=== PATIENT | female | born 1990 | race Caucasian/White ===

== ENCOUNTER 2017-05-05 16:12 | Emergency (ER) | payer SELFPAY ==
--- NOTE | 2017-05-05 17:03 | Emergency Department Record ---
History of Present Illness - General Chief Complaint: Back Pain/Injury Stated Complaint: BACK PAIN Time Seen by Provider: 05/05/17 16:55 Source: Patient Mode of Arrival: Ambulatory Limitations: No limitations - History of Present Illness Initial Comments: The patient is here due to worsening of her chronic low back pain. She was bumped by a tractor 2 days ago and fell backwards and landed on her R arm and low back. Now since her chronic back pain has been worse. She denies any AP, leg numbness, weakness, or any bowel or bladder issues. She states her LMP was less than a month ago and she did have a neg home preg test last week. MD Complaint: Back pain Onset/Timin -: Days(s) Similar Symptoms Previously: Yes Place: Other Radiation: None Severity: Moderate Severity scale (1-10): 6 Quality: Aching Consistency: Constant Improves With: None Worsens With: Movement, Walking Context: Other Associated Symptoms: Denies other symptoms Treatment Prior to Arrival Comment:: Icy/Hot - Related Data Home Medications Medication Instructions Recorded Confirmed Last Taken No Home Med [NO HOME MEDS] 05/05/17 05/05/17 Unknown Allergies Allergy/AdvReac Type Severity Reaction Status Date / Time No Known Drug Allergies Allergy Verified 05/05/17 16:25 Travel Screening - Travel/Exposure Within Last 30 Days Have you traveled within the last 30 days?: No - Travel/Exposure Within Last Year Have you traveled outside the [place] in the last year?: No - Additonal Travel Details Have you been exposed to anyone with a communicable illness?: No - Travel Symptoms Symptom Screening: None Review of Systems Constitutional: Denies: Chills, Fever Eyes: Denies: Eye discharge ENT: Denies: Congestion Respiratory: Denies: Cough, Dyspnea Past Medical History - SOCIAL HISTORY Smoking Status: Current every day smoker Alcohol Use: Occassional Drug Use: None - RESPIRATORY Hx Respiratory Disorders: No - CARDIOVASCULAR Hx Cardio Disorders: No - NEURO Hx Neuro Disorders: No - GI Hx GI Disorders: No - Hx Genitourinary Disorders: No - ENDOCRINE Hx Endocrine Disorders: No - MUSCULOSKELETAL Hx Musculoskeletal Disorders: Yes - PSYCH Hx Psych Problems: No - HEMATOLOGY/ONCOLOGY Hx Hematology/Oncology Disorders: No Family Medical History Any Significant Family History?: Yes Family Hx Comment (NOT TO BE USED IN PLACE OF ITEMS BELOW): Dad has back problems Physical Exam - General General Appearance: Alert, Oriented x3, Cooperative, No acute distress - Head Head exam: Atraumatic, Normocephalic, Normal inspection - Eye Eye exam: Normal appearance, PERRL - Neck Neck exam: Normal inspection, Full ROM. negative: Tenderness - Respiratory Respiratory exam: Normal lung sounds bilaterally. negative: Respiratory distress - Cardiovascular Cardiovascular Exam: Regular rate, Normal rhythm, Normal heart sounds - GI/Abdominal GI/Abdominal exam: Soft, Normal bowel sounds. negative: Tenderness - Back Back exam: Reports: Normal inspection, Paraspinal tenderness (mild L1-5), Vertebral tenderness (very mild L 1-5.) - Neurological Neurological exam: Alert, Altered, Normal gait, Oriented X3, Reflexes normal, Other. negative: Abnormal gait, Motor sensory deficit Course Vital Signs 05/05/17 16:26 Temperature 97.9 F Pulse Rate 71 Respiratory 20 Rate Blood Pressure 118/87 Pulse Ox 98 - Reevaluation(s) Reevaluation #1: The patient denies any new issues. She is to be off work 2 days and rest and see her PCP if not better. 05/05/17 17:51 Medical Decision Making - Data Complexity MDM Data: X-Ray Ordered and/or Reviewed - Radiology Data Radiology results: Report reviewed (LS Spine: Neg for any acute abnormality.) Disposition Disposition: Discharge Clinical Impression: Lumbar strain Qualifiers: Encounter type: initial encounter Qualified Code(s): S39.012A - Strain of muscle, fascia and tendon of lower back, initial encounter Disposition: Home, Self-Care Condition: (1) Good Instructions: Low Back Strain (ED) Additional Instructions: Please use your home pain medicines as needed with no lifting for 2 days. Please see your PCP if not better in 3 days. Return to the ER for any increasing pain, weakness, numbness or any bowel or bladder issues. Forms: Patient Portal Access Time of Disposition: 17:52 Quality - Quality Measures Quality Measures: N/A - Blood Pressure Screening Blood Pressure Classification: Pre-Hypertensive BP Reading Systolic Measurement: 118 Diastolic Measurement: 87 Screening for High Blood Pressure: < Pre-Hypertensive BP, F/U Documented > [ G8950] Pre-Hypertensive Follow-up Interventions: Follow-up with rescreen every year.
[2017-05-05] MEDS: ACETAMINOPHEN 325 MG TAB PO ONE (17:12)
--- NOTE | 2017-05-06 13:28 | RADIOLOGY REPORT ---
EXAM: LUMBAR SPINE, THREE VIEWS HISTORY: INJURED LUMBAR SPINE ON TRACTOR, PAIN. TECHNIQUE: Three views of the lumbar spine were obtained. Comparison: None. FINDINGS: Five lumbar segments. No fracture or subluxation. The facets are unremarkable. IMPRESSION: NEGATIVE LUMBAR SPINE EXAMINATION. JOB NUMBER: [id number] MTDD
== END 2017-05-05 18:01 | disposition home or self-care (01) ==
LOC: ER 16:12
DX: S39.012A Strain of muscle, fascia and tendon of lower back, initial encounter (principal); W22.8XXA Striking against or struck by other objects, initial encounter
CPT/HCPCS: 72100; 99283

== ENCOUNTER 2017-06-19 04:45 | Emergency (ER) | payer MEDICAID ==
[2017-06-19] MEDS ORDERED: AMOXICILLIN 500MG CAPSULE PO ONE (05:10)
[2017-06-19] MEDS ORDERED: ACETAMINOPHEN 325 MG TAB PO ONE (05:10)
--- NOTE | 2017-06-19 05:15 | Emergency Department Record ---
History of Present Illness - General Chief complaint: Toothache Stated complaint: INFECTED TOOTH NEED ANTIBIOTICS Time Seen by Provider: 06/19/17 05:06 Source: Patient Mode of Arrival: Ambulatory Limitations: No limitations - History of Present Illness Initial comments: The patient is here due to tooth pain for 2 days. She states she is missing a tooth and it has become painful for the last 2 days. She denies any ST, cough, or fever. MD complaint: Tooth pain Onset/Timin -: Days(s) Location: Tooth # Severity scale (1-10): 8 Quality: Aching Consistency: Constant Improves with: None Worsens with: Eating - Related Data Previous Rx's Medication Instructions Recorded Amoxicillin 500 mg PO TID #21 capsule 06/19/17 Allergies Allergy/AdvReac Type Severity Reaction Status Date / Time No Known Drug Allergies Allergy Verified 05/05/17 16:25 Travel Screening - Travel/Exposure Within Last 30 Days Have you traveled within the last 30 days?: No - Travel Symptoms Symptom Screening: None Review of Systems Constitutional: Denies: Chills, Fever Eyes: Denies: Eye discharge ENT: Denies: Congestion Respiratory: Denies: Cough Past Medical History - SOCIAL HISTORY Smoking Status: Current every day smoker - RESPIRATORY Hx Respiratory Disorders: Yes Hx Asthma: Yes - CARDIOVASCULAR Hx Cardio Disorders: No - NEURO Hx Neuro Disorders: No - GI Hx GI Disorders: No - Hx Genitourinary Disorders: No - ENDOCRINE Hx Endocrine Disorders: No - MUSCULOSKELETAL Hx Musculoskeletal Disorders: Yes - PSYCH Hx Psych Problems: No - HEMATOLOGY/ONCOLOGY Hx Hematology/Oncology Disorders: No Family Medical History Any Significant Family History?: Yes Family Hx Comment (NOT TO BE USED IN PLACE OF ITEMS BELOW): Dad has back problems Physical Exam - General General Appearance: Alert, Cooperative, No acute distress - Head Head exam: Atraumatic, Normocephalic, Normal inspection - Eye Eye exam: Normal appearance, PERRL - ENT ENT exam: Normal exam, Mucous membranes moist, Normal external ear exam, Normal orophraynx, TM's normal bilaterally, Other (There is no facial edema or swelling.) Teeth exam: Dental caries, Dental tenderness # (# 4 tooth is basically eaten away by dental caries.), Other (There is no gum line swelling or abscess. ). negative: Normal inspection Throat exam: Normal inspection. negative: Tonsillar erythema, Tonsillar exudate - Neck Neck exam: Normal inspection, Full ROM. negative: Tenderness Course Vital Signs 06/19/17 05:02 Temperature 97.9 F Pulse Rate 72 Respiratory 18 Rate Blood Pressure 134/85 Pulse Ox 97 - Reevaluation(s) Reevaluation #1: I explained to the patient that we will start her on Amox and have her see her Dentist next week. 06/19/17 05:13 Disposition Disposition: Discharge Clinical Impression: Pain, dental Disposition: Home, Self-Care Condition: (2) Stable Instructions: Toothache (ED) Additional Instructions: Please see your Dentist TIA. Take Tylenol for pain and take the Amox. as directed. Prescriptions: Amoxicillin 500 mg PO TID #21 capsule Forms: Patient Portal Access Time of Disposition: 05:15 Quality - Quality Measures Quality Measures: N/A - Blood Pressure Screening View Details: Yes Does Patient Have Any of the Following: No Blood Pressure Classification: Pre-Hypertensive BP Reading Systolic Measurement: 134 Diastolic Measurement: 85 Screening for High Blood Pressure: < Pre-Hypertensive BP, F/U Documented > [ G8950] Pre-Hypertensive Follow-up Interventions: Referral to alternative/primary care provider.
== END 2017-06-19 05:24 | disposition home or self-care (01) ==
LOC: ER 04:45
DX: K02.9 Dental caries, unspecified (principal)
CPT/HCPCS: 99282